=== PATIENT | female | born 1980 | race Native Hawaiian/Other Pacific Islander ===

== ENCOUNTER 2018-12-15 11:01 | Emergency (ER) | payer SELFPAY ==
[~2018-12-15] VITALS: Ht 154.9 cm; Wt 56.2 kg
[2018-12-15 11:01] VITALS: BP 146/97
== END 2018-12-15 11:55 | disposition home or self-care (01) ==
LOC: ER 11:08
DX: G51.0 Bell's palsy (principal); F41.9 Anxiety disorder, unspecified